=== PATIENT | male | born 1960 | race Caucasian/White ===

== ENCOUNTER 2020-11-08 23:41 | Emergency (ER) | payer OTHER ==
[~2020-11-08] VITALS: Ht 182.9 cm; Wt 104.3 kg
--- NOTE | 2020-11-08 23:59 | NUR ---
ED Nurse Note: pt from home c/o bilateral lower leg edema and pain x2 weeks, hx of htn, dm type 2, hypertensive on triage, all other vitals stable, aox4, ambulatory
[2020-11-09 00:12] VITALS: BP 177/88
--- NOTE | 2020-11-09 00:13 | NUR ---
Pte came to ER ambulatory c/o bylateral leg swelling since 2 weeks ago , pte refers he is diabetic and hypertensive. Will continue to monitor the patient during the shift.
--- NOTE | 2020-11-09 00:18 | Emergency Room Report ---
History of Present Illness General Chief Complaint: Edema Source: Patient Present Illness HPI 60-year-old male with past medical history of hypertension, diabetes presents emergency department with progressive lower extremity leg edema since having his furosemide dose cut in half 1 month ago. Patient has an upcoming appointment with his primary care doctor tomorrow followed by nephrology on 11/11/2020. He denies any subjective complaint of cough, shortness of breath, hemoptysis, chest pain, dyspnea on exertion, orthopnea, nausea, vomiting, diarrhea, calf pain, fever, chills, back pain or any other symptoms. He denies history of PE/DVT, recent trauma or immobilization, recent surgery or prolonged travel or any other issues. The patient's symptoms were gradual onset, severity was moderate, duration since 1 month. Quality: Progressive leg edema Past medical history: Hypertension, diabetes Past surgical history: Knee surgeries x2, hip surgery Smoking: Occasional Alcohol use: Occasional Drug use: Denies Review of systems: CONST: No fevers or chills, No night sweats PULMONARY: No productive cough, No shortness of breath CARDIAC: No chest pain, No palpitations GI: No vomiting, No diarrhea , No melena_or_BRBPR : No dysuria, No hematuria, No discharge NEURO: No new_focal_weakness_or_numbness, No confusion, No vision changes 14 point Review of Systems is otherwise negative except per HPI Physical Exam: GENERAL: Awake_alert_ nontoxic, no acute distress Spo2 100% on RA -normal EYES: Extraocular muscles are intact. Conjunctivae clear. Lids without swelling ENT: External nose and ear normal_in_appearance. Oropharynx clear. Head_atraumatic, Moist_oral_mucosa NECK: No JVD. No meningismus. No thyromegaly. Supple. Trachea midline RESP: Normal respiratory effort. Symmetric rise. No stridor. Clear_to_auscultation_No_rales_No_wheezes CARDIAC: Regular rate and regular rhytm. No_significant pedal edema. ABDOMEN: Soft. Nondistended. Nontender_No_rebound_or_guarding. MSK: Normal muscle tone, without rigidity. 2+ pitting edema bilateral lower ex tremities. Bilateral venous stasis with overlying erythema. Mild weeping. No significant cellulitis. No palpable crepitus. Negative Homans' sign bilaterally. SKIN: Warm and dry. No visible cyanosis or pallor. No new foot ulceration. There is a scab to the left dorsal foot. No palpable abscess or induration. No crepitus. NEUROLOGIC: Alert, oriented x3. Motor_and_sensation_grossly_intact. No truncal ataxia. Gait_normal Psych: Normal mood and affect, normal judgment and insight - COORDINATION OF CARE Case was discussed with: Patient Any labs and imaging that were ordered were interpreted as part of the medical decision makin-lead EKG (interpreted by me) Time: 00 19 Indication: Rhythm analysis Tracing visualized and Interpreted by me. Rhythm: Normal sinus rhythm Rate: 83 bpm QTc: 458 Morphology: No_significant_ST_elevations_or_depressions, No STEMI Impression: Q waves lead V1 and V2. Hyperacute T waves V2 through V4. No STEMI Medical Decision Making/Plan: Differential includes CHF, pulmonary edema, pulmonary embolism, pneumonia, pleural effusions, pneumothorax, among others. Patient appears edematous in the bilateral lower extremities since reducing his Lasix dosage. No complaint of chest pain, shortness of breath, or anginal equivalent. He has a follow-up with his primary care doctor tomorrow. On examination, he is hypertensive however has no difficulty breathing and is not requiring supplemental oxygen. EKG NSR without any obvious signs of ischemia. Patient abruptly decided to leave AGAINST MEDICAL ADVICE because he had to "pick his grandparents up". Serum labs have been sent to laboratory and are listed as pending. Patient was advised to return after he is done picking up his grandchildren, and states he will already feels better. Patient was offered admission, however he refuses stating that he has close outpatient follow-up tomorrow morning with Dr. Hassan. ED intervention included Lasix diuresis Symptoms are not likely to be due to pulmonary embolism, the patient has no significant PE/DVT risk factors and has a more likely alternate cause of their symptoms, given their chest xray findings, lung exam and presentation so workup was deferred and not pursued. The patient decided to leave AGAINST MEDICAL ADVICE. They understand the risks, benefits, and alternatives of continued treatment versus leaving. They understand the risks including but not limited to: worsening condition, missed diagnosis, permanent disability, and even associated with lack of potential further testing, monitoring, and treatments. The patient has capacity to make this decision in my opinion. The patient was encouraged to follow up with their primary care provider as soon as possible and to return immediately if they change their mind or if symptoms worsen or for any other concerns. PEPE Lazaro was present for the discussion. All patient questions were answered. Allergies: Coded Allergies: CODEINE (Verified Allergy, Unknown, 11/08/20) PENICILLINS (Verified Allergy, Unknown, 11/08/20) TRAMADOL (Verified Allergy, Unknown, 11/08/20) Uncoded Allergies: PENICILLIN (Allergy, Unknown, 11/08/20) COVID-19 Screening Contact w/high risk pt: No Experienced COVID-19 symptoms?: No COVID-19 Testing performed ENVIRONMENTAL COMPLIANCE OFFICER: No Physical Exam Vital Signs Date Time Temp Pulse Resp B/P (MAP) Pulse Ox O2 Delivery O2 Flow Rate FiO2 11/08/20 23:53 98.8 86 16 175/81 (112) 96 Room Air Sp02 EP Interpretation: reviewed, normal Medical Decision Making Diagnostic Impression: Primary Impression: Peripheral edema Additional Impression: HTN (hypertension) EKG Diagnostic Results Troponin ordered: Yes When was troponin ordered?: Nov 09, 2020 Rhythm Strip Diag. Results Rhythm Strip Time: 00:17 EP Interpretation: yes Rate: 88 Rhythm: NSR, no PVC's, no ectopy Last Vital Signs Date Time Temp Pulse Resp B/P (MAP) Pulse Ox O2 Delivery O2 Flow Rate FiO2 11/08/20 23:53 98.8 86 16 175/81 (112) 96 Room Air Disposition: AGAINST MEDICAL ADVICE Admit Decision Time: 01:00 Condition: Unknown Scripts Furosemide* (LASIX*) 40 Mg Tablet 40 MG ORAL BID for 7 Days, #14 TAB Prov: Bridgette Dee D.O. 11/09/20 Doxycycline Monohydrate* (DOXYCYCLINE MONOHYDRATE*) 100 Mg Capsule 100 MG ORAL Q12H, #14 CAP 0 Refills Prov: Bridgette Dee D.O. 11/09/20 Referrals: NOT CHOSEN [facility]/,REFERRING (PCP) Patient Instructions: Peripheral Edema Additional Instructions: Bridgette Isabel D.O. Nov 09, 2020 00:18
[2020-11-09] MEDS ORDERED: FUROSEMIDE40 MG ORAL (00:19)
[2020-11-09] MEDS ORDERED: DOXYCYCLINE MO100 MG ORAL (00:19)
[2020-11-09 00:23] LABS: EOSINOPHILS % (AUTO) 6.9 % (0.0-3.0); HEMATOCRIT 52.4 % (42.0-52.0); HEMOGLOBIN 17.3 G/DL (14.2-18.0); LYMPHOCYTES % (AUTO) 31.5 % (20.0-45.0); MEAN CORPUSCULAR VOLUME 96 FL (80-99); NEUTROPHILS % (AUTO) 50.7 % (45.0-75.0); PLATELET COUNT 178 K/UL (150-450); RED BLOOD COUNT 5.44 M/UL (4.70-6.10); RED CELL DISTRIBUTION WIDTH 12.1 % (11.6-14.8); WHITE BLOOD COUNT 6.5 K/UL (4.8-10.8)
--- NOTE | 2020-11-09 00:23 | NUR ---
18 g iv to rfa esablished. blood collected and sent to lab.
[2020-11-09 00:36] LABS: ANION GAP 5 mmol/L (5-15); BLOOD UREA NITROGEN 12 mg/dL (7-18); CALCIUM 9.5 MG/DL (8.5-10.1); CARBON DIOXIDE 34 MMOL/L (21-32); CHLORIDE 103 MMOL/L (98-107); CREATININE 1.1 MG/DL (0.55-1.30); POTASSIUM 4.3 MMOL/L (3.5-5.1); SODIUM 142 MMOL/L (136-145)
--- NOTE | 2020-11-09 00:43 | NUR ---
Patient refusing to keep in the hospital and wishes to go home. Patient has being oriented all the possible risks and complications of leaving AMA. Patient agrees to leave and signs the refusal form . Patient left the hospital ambulatory without no complains.
[2020-11-09 00:46] LABS: ALANINE AMINOTRANSFERASE 71 U/L (12-78); ALBUMIN 3.4 G/DL (3.4-5.0); ALBUMIN/GLOBULIN RATIO 0.9 (1.0-2.7); ALKALINE PHOSPHATASE 161 U/L (46-116); ASPARTATE AMINO TRANSFERASE 81 U/L (15-37); BILIRUBIN,TOTAL 0.8 MG/DL (0.2-1.0)
== END 2020-11-09 00:47 | disposition left against medical advice (07) ==
LOC: EMR 23:55
DX: R60.0 Localized edema (principal); I10 Essential (primary) hypertension; E11.9 Type 2 diabetes mellitus without complications; I87.8 Other specified disorders of veins; Z88.0 Allergy status to penicillin; Z88.6 Allergy status to analgesic agent
CPT/HCPCS: 36415; 80053; 82962; 83880; 84484; 85025; 93005; 96374; J1940; Z7502; 99284